=== PATIENT | female | born 1945 | race Caucasian/White ===

== ENCOUNTER → 2018-12-03 | Outpatient (CLI) | payer MEDICARE | LOC: RAD 11:37 | PROVIDERS: ATTEND Internal Medicine | DX: M79.662 Pain in left lower leg (principal); R60.9 Edema, unspecified | CPT/HCPCS: 93971 ==

== ENCOUNTER → 2019-02-03 | Outpatient (CLI) | payer MEDICARE ==
--- NOTE | 2019-02-03 12:19 | Diagnostic Imaging Report ---
EXAM: Renal Ultrasound INDICATION: ^Chronic kidney disease, stage 4; COMPARISON: None TECHNIQUE: Transverse and longitudinal images of the kidneys and bladder were obtained. FINDINGS: Right Kidney: Length: 10.1 cm Appearance: Normal echogenicity. Collecting system: No hydronephrosis Stones: None Cyst/Mass: None Left Kidney: Length: 8.3 cm Appearance: Normal echogenicity. Collecting system: No hydronephrosis Stones: None Cyst/Mass: 8 x 6 x 8 mm lower pole anechoic simple cyst. Bladder: No mass or calculi. Bilateral ureteral jets visualized. Prevoid volume estimate of 35 cc. Postvoid images done straight complete emptying. IMPRESSION: No hydronephrosis or renal calculi. Left lower pole simple renal cyst as above. Signed by: Shayla Corrales MD on 02/03/2019 12:16 PM
== END ==
LOC: US 11:08
PROVIDERS: ATTEND Internal Medicine Nephrology
DX: N18.4 Chronic kidney disease, stage 4 (severe) (principal)
CPT/HCPCS: 76770; 76857

== ENCOUNTER → 2020-02-08 | Outpatient (CLI) | payer MEDICARE | LOC: US 09:30 | PROVIDERS: ATTEND Internal Medicine | DX: K76.0 Fatty (change of) liver, not elsewhere classified (principal); R94.5 Abnormal results of liver function studies | CPT/HCPCS: 76705 ==

== ENCOUNTER 2021-05-15 11:38 | Inpatient (IN) | payer MEDICARE ==
[~2021-05-15] VITALS: Ht 165.1 cm; Wt 63.5 kg
[2021-05-15 11:58] LABS: BASOPHILS # (AUTO) 0.1 (0.0-0.1); BASOPHILS % 0.7 % (0.0-1.0); EOSINOPHILS # (AUTO) 0.3 (0.0-0.4); EOSINOPHILS % 2.9 % (0.0-6.0); HEMATOCRIT 38.4 % (34.2-44.1); HEMOGLOBIN 12.4 g/dL (12.0-16.0); LYMPHOCYTES # (AUTO) 1.3 (1.0-3.2); LYMPHOCYTES % 13.1 % (18.0-39.1); MEAN CORPUSCULAR HEMOGLOBIN 29.7 pg (28-32); MEAN CORPUSCULAR HGB CONC 32.3 g/dL (31-35); MEAN CORPUSCULAR VOLUME 92.1 fL (81-99); MONOCYTES # (AUTO) 0.9 (0.2-0.8); MONOCYTES % 8.9 % (4.4-11.3); NEUTROPHILS # (AUTO) 7.1 (2.1-6.9); NEUTROPHILS % 73.9 % (38.7-80.0); PLATELET COUNT 201 x10e3/uL (140-360); RED BLOOD COUNT 4.17 x10e6/uL (3.6-5.1); RED CELL DISTRIBUTION WIDTH 13.6 % (11.7-14.4)
[2021-05-15 12:10] LABS: CLARITY,URINE CLEAR (CLEAR); COLOR,URINE YELLOW (YELLOW); KETONES,URINE NEGATIVE (NEGATIVE); LEUKOCYTE ESTERASE ,URINE SMALL (NEGATIVE); NITRITE,URINE NEGATIVE (NEGATIVE); PROTEIN,URINE DIPSTICK NEGATIVE (NEGATIVE); URINE UROBILINOGEN 0.2 mg/dL (0.2 - 1)
[2021-05-15 12:12] LABS: BACTERIA,URINE MODERATE /HPF; EPITHELIAL CELLS,URINE FEW /LPF; RBC,URINE 0-5 /HPF (0-5)
[2021-05-15 12:19] LABS: ALBUMIN 3.4 g/dL (3.5-5.0); ALBUMIN/GLOBULIN RATIO 0.7 (0.8-2.0); ANION GAP 14.1 mmol/L (8-16); CALCIUM 9.5 mg/dL (8.4-10.2); CREATININE, SERUM 3.24 mg/dL (0.57-1.11); POTASSIUM 5.1 mmol/L (3.5-5.1)
[2021-05-15] MEDS ORDERED: Morphine 4mg Syringe 4 MG/ML INJ IV PRN (13:30)
[2021-05-15] MEDS ORDERED: SODIUM CHLORIDE 0.9% 1000ML 1,000 ML IV ONE (13:30)
[2021-05-15] MEDS ORDERED: ONDANSETRON HCL INJ 2MG/ML 2ML 2 MG/ML VIAL IV PRN ×3 (13:30→19:15)
[2021-05-15] MEDS: CEFTRIAXONE 1 GM VIAL IM ONE ×2 (14:15→16:18)
[2021-05-15] MEDS ORDERED: Morphine 2mg Syringe 2 MG/ML SYR IV PRN (17:45)
[2021-05-15] MEDS: SODIUM CHLORIDE 0.9% 1000ML 1,000 ML IV SCH (18:11)
[2021-05-15] MEDS ORDERED: FAMOTIDINE 20 MG/2 ML VIAL IV SCH ×2 (19:15→20:00)
[2021-05-15 19:43] LABS: AMYLASE 233 U/L (25-125); LIPASE 261 U/L (8-78)
[2021-05-15] MEDS ORDERED: vitamin B12 IM (19:44)
[2021-05-15] MEDS ORDERED: SYNTHROID50 MCG PO (19:44)
[2021-05-15 20:23] VITALS: BP 115/64
[2021-05-15 21:00] VITALS: BP 115/64
[2021-05-16] VITALS (8 sets, daily range): BP systolic 87–108; BP diastolic 54–60
[2021-05-16] MEDS: SODIUM CHLORIDE 0.9% 1000ML 1,000 ML IV SCH ×2 (02:09→08:35)
[2021-05-16 06:03] LABS: BASOPHILS # (AUTO) 0.1 (0.0-0.1); BASOPHILS % 0.7 % (0.0-1.0); EOSINOPHILS # (AUTO) 0.2 (0.0-0.4); EOSINOPHILS % 2.9 % (0.0-6.0); HEMOGLOBIN 10.1 g/dL (12.0-16.0); LYMPHOCYTES % 12.2 % (18.0-39.1); MEAN CORPUSCULAR HEMOGLOBIN 30.6 pg (28-32); MEAN CORPUSCULAR HGB CONC 32.6 g/dL (31-35); MEAN CORPUSCULAR VOLUME 93.9 fL (81-99); MONOCYTES # (AUTO) 0.6 (0.2-0.8); MONOCYTES % 7.5 % (4.4-11.3); NEUTROPHILS # (AUTO) 6.3 (2.1-6.9); PLATELET COUNT 149 x10e3/uL (140-360); RED CELL DISTRIBUTION WIDTH 13.5 % (11.7-14.4)
[2021-05-16] MEDS: LEVOTHYROXINE SODIUM 50 MCG TAB PO SCH (06:09)
[2021-05-16 06:27] LABS: ALBUMIN 2.5 g/dL (3.5-5.0); ALBUMIN/GLOBULIN RATIO 0.7 (0.8-2.0); ANION GAP 10.9 mmol/L (8-16); CALCIUM 8.1 mg/dL (8.4-10.2); CREATININE, SERUM 2.77 mg/dL (0.57-1.11); POTASSIUM 4.9 mmol/L (3.5-5.1)
[2021-05-16] MEDS ORDERED: SODIUM CHLORIDE 0.9% 250ML 250 ML IV ONE (07:00)
[2021-05-16 07:11] LABS: AMYLASE 261 U/L (25-125); LIPASE 464 U/L (8-78)
[2021-05-16 15:23] LABS: ABG HCO3 14 mmol/L (22-26); ABG PCO2 24 mmHg (35-45); ABG PH 7.36 (7.35-7.45); ABG PO2 149 mmHg (80-105); ABG TCO2 14
[2021-05-16] MEDS: LACTATED RINGER'S 1,000 ML INJ SCH (15:44)
[2021-05-17] VITALS (9 sets, daily range): BP systolic 95–123; BP diastolic 51–62
[2021-05-17] MEDS: LACTATED RINGER'S 1,000 ML INJ SCH ×3 (01:09→15:45)
[2021-05-17 04:56] LABS: BASOPHILS % 0.5 % (0.0-1.0); EOSINOPHILS # (AUTO) 0.2 (0.0-0.4); EOSINOPHILS % 3.6 % (0.0-6.0); HEMATOCRIT 30.9 % (34.2-44.1); HEMOGLOBIN 9.9 g/dL (12.0-16.0); LYMPHOCYTES % 16.7 % (18.0-39.1); MEAN CORPUSCULAR HEMOGLOBIN 29.9 pg (28-32); MEAN CORPUSCULAR VOLUME 93.4 fL (81-99); MONOCYTES # (AUTO) 0.5 (0.2-0.8); MONOCYTES % 7.9 % (4.4-11.3); NEUTROPHILS # (AUTO) 4.3 (2.1-6.9); NEUTROPHILS % 70.6 % (38.7-80.0); PLATELET COUNT 127 x10e3/uL (140-360); RED BLOOD COUNT 3.31 x10e6/uL (3.6-5.1); RED CELL DISTRIBUTION WIDTH 13.8 % (11.7-14.4)
[2021-05-17 05:15] LABS: ALBUMIN 2.5 g/dL (3.5-5.0); ALBUMIN/GLOBULIN RATIO 0.7 (0.8-2.0); CALCIUM 8.1 mg/dL (8.4-10.2); CREATININE, SERUM 2.72 mg/dL (0.57-1.11)
[2021-05-17] MEDS: LEVOTHYROXINE SODIUM 50 MCG TAB PO SCH (06:26)
[2021-05-17] MEDS ORDERED: LACTATED RINGER'S 1,000 ML INJ ONE (10:00)
[2021-05-17 10:15] LABS: CHOL/HDL RATIO 2.5 (3.0-3.6)
[2021-05-17] MEDS ORDERED: IOPAMIDOL 370 MG/ML 100 ML INFUS..BTL INJ ONE (11:12)
[2021-05-17] MEDS: CIPROFLOXACIN 400 MG/D5W 200ML 200 ML IV SCH (20:21)
[2021-05-18] VITALS (7 sets, daily range): BP systolic 103–128; BP diastolic 52–71
[2021-05-18] MEDS: LACTATED RINGER'S 1,000 ML INJ SCH ×3 (01:07→17:24)
[2021-05-18 02:02] LABS: FERRITIN 275.86 ng/mL (4.63-204.00)
[2021-05-18 05:00] LABS: BASOPHILS % 0.6 % (0.0-1.0); EOSINOPHILS # (AUTO) 0.3 (0.0-0.4); HEMATOCRIT 28.8 % (34.2-44.1); HEMOGLOBIN 9.3 g/dL (12.0-16.0); LYMPHOCYTES # (AUTO) 1.2 (1.0-3.2); LYMPHOCYTES % 23.1 % (18.0-39.1); MEAN CORPUSCULAR HGB CONC 32.3 g/dL (31-35); MEAN CORPUSCULAR VOLUME 92.9 fL (81-99); MONOCYTES # (AUTO) 0.5 (0.2-0.8); MONOCYTES % 9.2 % (4.4-11.3); NEUTROPHILS # (AUTO) 3.1 (2.1-6.9); NEUTROPHILS % 61.7 % (38.7-80.0); PLATELET COUNT 114 x10e3/uL (140-360); RED CELL DISTRIBUTION WIDTH 13.9 % (11.7-14.4)
[2021-05-18 05:21] LABS: ALBUMIN 2.2 g/dL (3.5-5.0); ALBUMIN/GLOBULIN RATIO 0.7 (0.8-2.0); ANION GAP 9.6 mmol/L (8-16); CALCIUM 7.9 mg/dL (8.4-10.2); CREATININE, SERUM 2.35 mg/dL (0.57-1.11); POTASSIUM 3.6 mmol/L (3.5-5.1)
[2021-05-18] MEDS: LEVOTHYROXINE SODIUM 50 MCG TAB PO SCH (05:35)
[2021-05-18] MEDS: CIPROFLOXACIN 400 MG/D5W 200ML 200 ML IV SCH (08:32)
[2021-05-19 00:18] VITALS: BP 110/60
[2021-05-19] MEDS: LACTATED RINGER'S 1,000 ML INJ SCH (04:17)
[2021-05-19 05:01] LABS: BASOPHILS % 0.8 % (0.0-1.0); EOSINOPHILS # (AUTO) 0.3 (0.0-0.4); HEMATOCRIT 28.5 % (34.2-44.1); HEMOGLOBIN 9.2 g/dL (12.0-16.0); LYMPHOCYTES # (AUTO) 0.9 (1.0-3.2); MEAN CORPUSCULAR HEMOGLOBIN 30.1 pg (28-32); MEAN CORPUSCULAR HGB CONC 32.3 g/dL (31-35); MEAN CORPUSCULAR VOLUME 93.1 fL (81-99); MONOCYTES # (AUTO) 0.5 (0.2-0.8); MONOCYTES % 9.1 % (4.4-11.3); NEUTROPHILS # (AUTO) 3.5 (2.1-6.9); NEUTROPHILS % 67.7 % (38.7-80.0); PLATELET COUNT 112 x10e3/uL (140-360); RED BLOOD COUNT 3.06 x10e6/uL (3.6-5.1); RED CELL DISTRIBUTION WIDTH 13.7 % (11.7-14.4)
[2021-05-19] MEDS: LEVOTHYROXINE SODIUM 50 MCG TAB PO SCH (05:10)
[2021-05-19 05:12] VITALS: BP 110/56
[2021-05-19 05:22] LABS: ALBUMIN 2.2 g/dL (3.5-5.0); ALBUMIN/GLOBULIN RATIO 0.7 (0.8-2.0); ANION GAP 7.9 mmol/L (8-16); CALCIUM 7.9 mg/dL (8.4-10.2); CREATININE, SERUM 2.32 mg/dL (0.57-1.11); POTASSIUM 3.9 mmol/L (3.5-5.1)
[2021-05-19 08:00] VITALS: BP 100/57
[2021-05-19 08:21] VITALS: BP 100/57
[2021-05-19] MEDS ORDERED: CIPROFLOXACIN 400 MG/D5W 200ML 200 ML IV SCH (09:00)
[2021-05-19] MEDS ORDERED: PROTONIX20 MG PO (11:13)
[2021-05-19] MEDS ORDERED: ONDANSETRON ODT8 MG PO (11:13)
[2021-05-19] MEDS ORDERED: CIPRO250 MG PO (11:13)
[2021-05-19] MEDS ORDERED: ONDANSETRON HCL 4 MG ORAL DISINTEGRATING TAB PO PRN (12:15)
[2021-05-20] MEDS ORDERED: PANTOPRAZOLE SOD 40 MG TABEC PO SCH (07:30)
[2021-05-20] MEDS ORDERED: CIPROFLOXACIN 250 MG TAB PO SCH (09:00)
== END 2021-05-19 12:12 | disposition home or self-care (01) | DRG 871 ==
LOC: ER 12:00 → ERHOLD 17:42 → MED/SURG2 18:35 → OBSVTOIN 05-16 06:48
PROVIDERS: ADMIT Internal Medicine; ATTEND Internal Medicine
DX: A41.59 Other Gram-negative sepsis (principal); N17.0 Acute kidney failure with tubular necrosis; N39.0 Urinary tract infection, site not specified; N18.4 Chronic kidney disease, stage 4 (severe); B96.1 Klebsiella pneumoniae [K. pneumoniae] as the cause of diseases classified elsewhere; K81.1 Chronic cholecystitis; K82.8 Other specified diseases of gallbladder; I12.9 Hypertensive chronic kidney disease with stage 1 through stage 4 chronic kidney disease, or unspecified chronic kidney disease; D63.1 Anemia in chronic kidney disease; D63.8 Anemia in other chronic diseases classified elsewhere; K74.69 Other cirrhosis of liver; Z90.49 Acquired absence of other specified parts of digestive tract; R65.20 Severe sepsis without septic shock; Z93.2 Ileostomy status; E86.0 Dehydration; E03.9 Hypothyroidism, unspecified; A08.4 Viral intestinal infection, unspecified; K76.0 Fatty (change of) liver, not elsewhere classified; K66.0 Peritoneal adhesions (postprocedural) (postinfection); Z88.0 Allergy status to penicillin; M10.9 Gout, unspecified
CPT/HCPCS: 36415; 74176; 74177; 74181; 78227; 80053; 80061; 81001; 82140; 82150; 82270; 82607; 82728; 82746; 82805; 83540; 83690; 84466; 84484; 85025; 85045; 87086; 87186; 93005; 94799; 96361; 99251; 99284; A9537; G0378; J0696; J2270; J2405; J7030; J7050; J7121; Q9967; U0002

== ENCOUNTER 2023-05-20 13:55 | Outpatient (RCR) | payer MEDICARE ==
[~2023-05-20 13:55] MED LIST: CIPRO250 MG PO; ONDANSETRON ODT8 MG PO; PROTONIX20 MG PO; SYNTHROID50 MCG PO; ULTRAM 50MG50 MG PO; vitamin B12 IM
== END 2023-06-11 ==
LOC: PT 13:55
PROVIDERS: ATTEND Specialist
DX: S42.292D Other displaced fracture of upper end of left humerus, subsequent encounter for fracture with routine healing (principal)

== ENCOUNTER 2023-08-02 12:55 | Outpatient (RCR) | payer MEDICARE ==
[~2023-08-02 12:55] MED LIST changes: +VIT D PO; -vitamin B12 IM; +vitamin B12 PO
== END 2023-08-11 ==
LOC: PT 12:55
PROVIDERS: ATTEND Physician Assistant
DX: S42.292D Other displaced fracture of upper end of left humerus, subsequent encounter for fracture with routine healing (principal); M25.512 Pain in left shoulder; M62.81 Muscle weakness (generalized)